=== PATIENT | male | born 1960 | race Caucasian/White ===

== ENCOUNTER 2017-03-05 10:32 | Emergency (ER) | payer BC ==
[~2017-03-05] VITALS: Ht 172.7 cm; Wt 108.9 kg
[2017-03-05 14:30] VITALS: BP 117/74
== END 2017-03-05 14:30 | disposition home or self-care (01) ==
LOC: ED 10:32
DX: M47.9 Spondylosis, unspecified (principal); E66.9 Obesity, unspecified; I10 Essential (primary) hypertension
CPT/HCPCS: J1170; J1885; Q0162